=== PATIENT | male | born 1965 | race Caucasian/White ===

== ENCOUNTER → 2021-11-09 13:40 | Outpatient (BNVA) | payer SELFPAY | PROVIDERS: Visit Provider Internal Medicine ==

== ENCOUNTER → 2024-01-20 09:05 | Outpatient (BNVA) | payer SELFPAY | PROVIDERS: Visit Provider Physician Assistant Medical | DX: Z02.79 Encounter for issue of other medical certificate (principal) ==

== ENCOUNTER → 2024-12-16 09:24 | Outpatient (BNVA) | payer SELFPAY | PROVIDERS: Visit Provider Physician Assistant Medical | DX: Z02.79 Encounter for issue of other medical certificate (principal) ==